=== PATIENT | male | born 1965 | race African-American/Black ===

== ENCOUNTER 2018-07-03 12:20 | Inpatient (IN) | payer MEDICAID ==
[~2018-07-03] VITALS: Ht 180.3 cm; Wt 100.8 kg
[2018-07-03] MEDS ORDERED: PLEASE ENTER HEIGHT AND WEIGHT MC SCH (12:30)
[2018-07-03] MEDS ORDERED: PLEASE ENTER ALLERGIES MC SCH (12:30)
[2018-07-03] MEDS ORDERED: ALBUTEROL SULFATE 2.5 MG/3 ML ONE (12:42)
[2018-07-03] MEDS ORDERED: ALBUTEROL SULFATE 2.5 MG/3 ML NPPB ONE (12:50)
[2018-07-03 12:59] LABS: BASOPHILS # (AUTO) 0.05 x10^3/uL (0-0.1); BASOPHILS % (AUTO) 1 % (0-1); EOSINOPHILS # (AUTO) 0.44 x10^3/uL (0-0.4); EOSINOPHILS % (AUTO) 6 % (1-7); LYMPHOCYTES # (AUTO) 3.66 x10^3/uL (1-3.4); LYMPHOCYTES % (AUTO) 49 % (22-44); MD NO; MEAN CORPUSCULAR HEMOGLOBIN 29.8 pg (27.5-34.5); MEAN CORPUSCULAR VOLUME 90.1 fL (81-97); MONOCYTES # (AUTO) 0.73 x10^3/uL (0.2-0.8); MONOCYTES % (AUTO) 10 % (2-9); NEUTROPHILS # (AUTO) 2.65 x10^3/uL (1.8-6.8); NEUTROPHILS % (AUTO) 35 % (42-75); PLATELET COUNT 212 x10^3/uL (130-400); RED BLOOD COUNT 5.86 x10^6/uL (4.38-5.82); RED CELL DISTRIBUTION WIDTH 14.7 % (9.4-14.8)
[2018-07-03 13:04] LABS: ALBUMIN 3.6 g/dL (3.4-5.0); ANION GAP 7 mmol/L (5-15); CALCIUM 8.1 mg/dL (8.5-10.1); CHLORIDE 109 mmol/L (98-107); CREATININE 0.87 mg/dL (0.7-1.3)
[2018-07-03 13:07] LABS: TROPONIN I < 0.015 ng/mL (0.000-0.045)
[2018-07-03] MEDS ORDERED: rescue inhaler INH (14:11)
[2018-07-03] MEDS ORDERED: water pill PO (14:11)
[2018-07-03] MEDS ORDERED: bp pill PO (14:11)
[2018-07-03 15:05] VITALS: BP 165/100
[2018-07-03] MEDS ORDERED: ALBUTEROL/IPRATROPIUM 2.5MG/0.5MG, 3 ML NPPB PRN (15:30)
[2018-07-03] MEDS ORDERED: LABETALOL 5MG/ML, 20ML IVPush PRN (15:30)
[2018-07-03] MEDS ORDERED: ONDANSETRON ODT 4 MG PO PRN (15:30)
[2018-07-03] MEDS ORDERED: BISACODYL 10 MG SUPP PR PRN (15:30)
[2018-07-03] MEDS ORDERED: hydrALAzine 20 MG/ML, 1ML IVPush PRN (15:30)
[2018-07-03] MEDS ORDERED: POLYETHYLENE GLYCOL 17 GM PACKET PO PRN (15:30)
[2018-07-03] MEDS ORDERED: ACETAMINOPHEN 325 MG TABLET PO PRN (15:30)
[2018-07-03] MEDS ORDERED: GUAIFENESIN/DM 200-20MG, 10ML UDC PO PRN (16:00)
[2018-07-03] MEDS ORDERED: AZITHROMYCIN 500 MG TABLET PO ONE (17:00)
[2018-07-03] MEDS ORDERED: ALBUTEROL SULFATE 2.5 MG/3 ML NPPB PRN (17:00)
[2018-07-03] MEDS: BENZONATATE 100 MG CAPSULE PO SCH ×2 (18:11→21:43)
[2018-07-03] MEDS: HEPARIN 5,000 UNITS/ML, 1ML SQ SCH (18:12)
[2018-07-03 18:56] VITALS: BP 155/95
[2018-07-03] MEDS ORDERED: DOCUSATE 100 MG CAPSULE PO PRN (21:00)
[2018-07-04] MEDS: HEPARIN 5,000 UNITS/ML, 1ML SQ SCH ×4 (00:24→23:56)
[2018-07-04 01:13] VITALS: BP 146/99
[2018-07-04 05:37] LABS: BASOPHILS # (AUTO) 0.04 x10^3/uL (0-0.1); BASOPHILS % (AUTO) 0 % (0-1); EOSINOPHILS # (AUTO) 0.13 x10^3/uL (0-0.4); EOSINOPHILS % (AUTO) 1 % (1-7); LYMPHOCYTES # (AUTO) 3.46 x10^3/uL (1-3.4); LYMPHOCYTES % (AUTO) 28 % (22-44); MD NO; MEAN CORPUSCULAR HEMOGLOBIN 30.4 pg (27.5-34.5); MEAN CORPUSCULAR HGB CONC 33.6 g/dL (33.2-36.2); MEAN CORPUSCULAR VOLUME 90.4 fL (81-97); MEAN PLATELET VOLUME 9.1 fL (7.4-10.4); MONOCYTES # (AUTO) 0.97 x10^3/uL (0.2-0.8); MONOCYTES % (AUTO) 8 % (2-9); NEUTROPHILS # (AUTO) 7.68 x10^3/uL (1.8-6.8); NEUTROPHILS % (AUTO) 63 % (42-75); PLATELET COUNT 224 x10^3/uL (130-400); RED BLOOD COUNT 5.26 x10^6/uL (4.38-5.82); RED CELL DISTRIBUTION WIDTH 14.6 % (9.4-14.8)
[2018-07-04 06:35] VITALS: BP 134/81
[2018-07-04 08:00] VITALS: BP 124/76
[2018-07-04] MEDS ORDERED: AMLODIPINE 5 MG TABLET PO SCH ×2 (09:00)
[2018-07-04] MEDS ORDERED: FUROSEMIDE 20 MG TABLET PO SCH (09:00)
[2018-07-04] MEDS: POTASSIUM CHLORIDE 8 MEQ TABLET.ER PO SCH (11:33)
[2018-07-04] MEDS: BENZONATATE 100 MG CAPSULE PO SCH ×3 (11:34→19:56)
[2018-07-04] MEDS: FUROSEMIDE 20 MG TABLET PO SCH (11:34)
[2018-07-04] MEDS: methylPREDNISolone SOD SUCC 125 MG/2 ML IVPush SCH ×2 (11:39→17:50)
[2018-07-04 14:10] VITALS: BP 145/106
[2018-07-04 16:14] LABS: AMPHETAMINE SCREEN, URINE Positive (Negative); BARBITURATE SCREEN, URINE Negative (Negative); BENZODIAZEPINE SCREEN, URINE Negative (Negative); CANNABINOID SCREEN, URINE Positive (Negative); COCAINE SCREEN, URINE Negative (Negative); METHADONE SCREEN, URINE Negative (Negative); OPIATE SCREEN, URINE Negative (Negative)
[2018-07-04] MEDS ORDERED: AZITHROMYCIN 250 MG TABLET PO SCH (17:00)
[2018-07-04 20:18] VITALS: BP_SYST 157; BP_SYST 162; BP_DIAS 100; BP_DIAS 110
[2018-07-05 00:38] VITALS: BP 158/93
[2018-07-05] MEDS: methylPREDNISolone SOD SUCC 125 MG/2 ML IVPush SCH (01:59)
[2018-07-05 07:24] VITALS: BP 175/103
[2018-07-05] MEDS: POTASSIUM CHLORIDE 8 MEQ TABLET.ER PO SCH (08:17)
[2018-07-05] MEDS: FUROSEMIDE 20 MG TABLET PO SCH (08:18)
[2018-07-05] MEDS: HEPARIN 5,000 UNITS/ML, 1ML SQ SCH (08:18)
[2018-07-05] MEDS: BENZONATATE 100 MG CAPSULE PO SCH (08:18)
[2018-07-05] MEDS ORDERED: AMLODIPINE 5 MG TABLET PO SCH (09:00)
[2018-07-05 10:54] VITALS: BP 155/90
[2018-07-05] MEDS ORDERED: ALBU6.7H INH (11:20)
[2018-07-05] MEDS ORDERED: FURO20TA3 PO (11:20)
[2018-07-05] MEDS ORDERED: AZIT250T89 PO (11:20)
[2018-07-05] MEDS ORDERED: PRED20TA PO (11:20)
[2018-07-05] MEDS ORDERED: POTA8TAB PO (11:20)
[2018-07-05] MEDS ORDERED: AMLO5TAB2 PO (11:20)
== END 2018-07-05 15:20 | disposition home or self-care (01) | DRG 202 ==
LOC: ED 13:17 → INTOOBSV 13:53 → EDIP 13:53 → 3NE 15:01 → OBSVTOIN 07-04 11:28
PROVIDERS: ADMIT Internal Medicine; ATTEND Internal Medicine
DX: J20.9 Acute bronchitis, unspecified (principal); J45.41 Moderate persistent asthma with (acute) exacerbation; F12.90 Cannabis use, unspecified, uncomplicated; I10 Essential (primary) hypertension; Z59.0 Homelessness; F17.200 Nicotine dependence, unspecified, uncomplicated
CPT/HCPCS: 36415; 99285; J7613; 71045; 80048; 80307; 82040; 83605; 84484; 85025; 93970; 94640; G0378; J1644; J2930; J7512